=== PATIENT | female | born 1965 | race Hispanic/Latino ===

== ENCOUNTER 2025-08-11 21:55 | Emergency (ER) | payer SELFPAY ==
--- NOTE | ~2025-08-11 | XR_ITS ---
EXAMINATION: XR ankle RT min 3V, 08/11/2025 22:10 CDT HISTORY: ankle lac and pain COMPARISON: No comparisons available. Findings: No acute fracture or malalignment. No significant degenerative changes. Soft tissues unremarkable. Impression: No acute fracture or malalignment. Reviewed, dictated and finalized at location P. Impression: No acute fracture or malalignment.
[2025-08-11 21:58] VITALS: BP 150/77; PULSE 98; RESP 20; TEMP 36.7; O2SAT 97
--- NOTE | 2025-08-12 01:47 | ED_ITS ---
HPI - Wound/Laceration General Chief Complaint: Wound/Laceration Stated Complaint: lac to right heel Time Seen by Provider: 08/12/25 01:01 History of Present Illness HPI narrative: Patient is a 60-year-old non Tamazight-speaking female who presents to the ER with a laceration to the back of her right ankle. She reports a mirror broke and a piece of it cut her foot. Patient reports the incident happened around 10:00 a.m. this morning. She endorses significant pain when putting pressure to the site and bleeding. Patient endorses a history of diabetes and high blood pressure. She is unsure when she last had her tetanus shot. Patient denies any calf pain, decreased range of motion, pain to the bottom of her foot, purulent drainage, or recent fevers. Related Data Allergies Allergy/AdvReac Type Severity Reaction Status Date / Time No Known Allergies Allergy Verified 08/11/25 22:03 Review of Systems Review of Systems: All systems reviewed & are unremarkable except as noted in HPI and below Exam Narrative: GENERAL: Well appearing, well-nourished, non-toxic, in no acute distress. HEAD: Normocephalic, atraumatic. NECK: Supple. No adenopathy, no masses. RESPIRATORY: Airway patent, respirations nonlabored. Clear to auscultation bilaterally, no rales, rhonchi, wheezing. CARDIOVASCULAR: Regular rate and rhythm without murmurs, rubs, or gallops. Peripheral pulses 2+ and equal bilaterally. ABDOMINAL: Soft, nontender, nondistended, no hepatosplenomegaly. Normoactive BS. MUSCULOSKELETAL: Moves all extremities. Strength/ROM intact without gross deformities. SKIN: Warm, dry, normal color. No rashes. Approximately 6 cm linear laceration to posterior ankle, bleeding controlled but intermittent oozing. NEURO: A&O X3. Speech clear. Cranial nerves II-XII intact. No ataxic movements. PSYCHIATRIC: Appropriate mood and affect. Normal interaction. Course Vital Signs Vital signs: Vital Signs Temperature 36.7 C 08/11/25 21:58 Pulse Rate 98 08/11/25 21:58 Respiratory Rate 20 08/11/25 21:58 Blood Pressure 150/77 H 08/11/25 21:58 Pulse Oximetry 97 08/11/25 21:58 Oxygen Delivery Room Air 08/11/25 21:58 Temperature 36.7 C 08/11/25 21:58 Pulse Rate 98 08/11/25 21:58 Respiratory Rate 20 08/11/25 21:58 Blood Pressure 150/77 H 08/11/25 21:58 Pulse Oximetry 97 08/11/25 21:58 Oxygen Delivery Room Air 08/11/25 21:58 Procedures Laceration Laceration 1: Date: 08/12/25 Time: 03:13 Site: lower extremity Side (If applicable): right Size (cm): 6 Description: linear and flap Depth: simple, single layer Local Anesthetic: lidocaine 1% and with epi Amount of anesthesia used (mL): 8 Pre-repair: wound explored and irrigated extensively ====== Skin Level ====== Skin layer closed with: nylon Size (cm): 3-0 Number of sutures: 6 Technique: simple, interrupted ====== Subcutaneous Layer ====== ====== Muscle Layer ====== ====== Tendon Layer ====== MDM - Wound/Laceration MDM Narrative Medical decision making narrative: Patient is a 60-year-old non Tamazight-speaking female who presents to the ER with a laceration to the back of her right ankle. She reports a mirror broke and a piece of it cut her foot. Patient reports the incident happened around 10:00 a.m. this morning. She endorses significant pain when putting pressure to the site and bleeding. Patient endorses a history of diabetes and high blood pressure. She is unsure when she last had her tetanus shot. Patient denies any calf pain, decreased range of motion, pain to the bottom of her foot, purulent drainage, or recent fevers. Labs Ordered: None necessary Imaging Ordered: Right ankle x-ray Medications Ordered: [place] p.o., Tdap IM, lidocaine with epinephrine infiltrate Results: Patient's ankle x-ray indicates no evidence of acute fracture di slocation. Diagnosis: Right ankle laceration Patient presented to ED after sustaining a laceration to her R posterior ankle. Vital signs stable upon arrival. No other injuries. Patient's tetanus status unknown, so pt was vaccinated today. No active bleeding upon my evaluation. R ankle x-ray obtained and negative for acute findings. Lidocaine with epi was used with adequate anesthesia. Laceration was repaired with 6 sutures without complications. Patient was given wound care instructions and advised to follow- up with primary care doctor in the next 3 days for wound check. She and her fa mis member were given significant education regarding monitoring for infection, care for the laceration, and suture removal. Pt was given reasons to return to the ED. She was given instructions on how to use crutches and advised to refrain from putting pressure on her right foot. Patient's laceration was dressed with a nonadherent dressing and an Juno wrap was placed over the top. All questions answered. Vital signs stable at time of discharge. Differential Diagnosis Differential diagnosis: Likely laceration, abrasion and avulsion of skin Imaging Data Attestation: I personally reviewed and interpreted this imaging study as follows: Radiologist's impression: No evidence of acute fracture or dislocation Discharge Plan Discharge Clinical Impression: Laceration, Acute right ankle pain Patient Disposition: Home Condition: Stable Instructions: Antibiotic Form, Care For Your Stitches (ED), Laceration (ED) Additional Instructions: Please return to the ER with any worsening symptoms. Follow-up with primary care provider and the next 3 days to ensure you are healing. Take all medications as prescribed, including regularly scheduled medications. You may take Tylenol as needed for pain control. Please watch for signs of infection including redness, purulent drainage from the site, or fevers. You may allow water and soap to run over the site, but please do not soak the site in any liquid. Please keep the site clean and covered with a dressing. You may have your sutures removed in 10-14 days. Patient Language: [place]ian Follow-up/Referrals: Ceci Kaplan DO [Physician, Family Practice] Referral Note: primary care provider UNKNOWN,DOCTOR [Primary Care Provider] Time of Disposition: 03:22
[2025-08-12] MEDS: TETANUS,DIPHTHERIA,AC PERTUSSIS ADULT (0.5 ML) BOOSTRIX IM (02:15)
[2025-08-12] MEDS: HYDROcodone/acetaminophen (*CRX) 5-325 MG TABLET 1 TAB PO (02:15)
== END 2025-08-12 03:59 | disposition home or self-care (01) ==
PROVIDERS: Emergency Provider Registered Nurse
DX: S91.011A Laceration without foreign body, right ankle, initial encounter (principal); Z23 Encounter for immunization; W25.XXXA Contact with sharp glass, initial encounter
CPT/HCPCS: 12002; 73610; 90471; 90715; 99283; A9270